=== PATIENT | female | born 1985 | race Caucasian/White ===

== ENCOUNTER 2018-04-15 08:54 | Outpatient (CLI) | payer BC | END 2018-04-15 08:55 | disposition home or self-care (01) | LOC: LAB 08:54 | PROVIDERS: ATTEND Obstetrics & Gynecology Reproductive Endocrinology | DX: Z32.00 Encounter for pregnancy test, result unknown (principal) | CPT/HCPCS: 36415; 84702; 84703 ==

== ENCOUNTER 2018-07-02 14:59 | Outpatient (CLI) | payer BC ==
--- NOTE | 2018-07-03 09:43 | Ultrasound Report ---
Procedure Date: 07/02/2018 Accession Number: [id number] / [id number] Procedure: US - OB Transvaginal CPT Code: FULL RESULT: EXAM: OB Transvaginal DATE: 07/02/2018 5:09 PM CLINICAL HISTORY: ENCNTR FOR SUPRVSN OF NORMAL FIRST , UNSP TECHNIQUE: Real-time scanning was performed with apprenticeship representative static images obtained. COMPARISON: None FINDINGS: The patient reports in vitro fertilization 05/28/2018. There are two live intrauterine gestations within apparently separate embryonic cavities. Gestation A demonstrates a crown-rump length of 7.3 mm for an estimated sonographic age of 6 weeks and 5 days with a heart rate of 144 bpm and a yolk sac diameter of 4.3 mm. There is no perigestational fluid collection. Gestation B demonstrates a crown-rump length of 5.2 mm for an estimated gestational age of 6 weeks and 3 days with a cardiac activity of 148 bpm. The yolk sac measures 4.7 mm. There is no perigestational fluid collection. Right ovary measures 2.7 x 1.7 x 2.2 cm and appears unremarkable. Left ovary measures 2.9 x 3.8 x 2.8 cm and appears unremarkable. Note is made of a small amount of free fluid in the pelvis. IMPRESSION: Twin live intrauterine gestations with sonographic ages of 6 weeks 5 days and 6 weeks 3 days respectively.
== END 2018-07-02 15:00 | disposition home or self-care (01) ==
LOC: DI 14:59
PROVIDERS: ATTEND Obstetrics & Gynecology Reproductive Endocrinology
DX: Z34.01 Encounter for supervision of normal first pregnancy, first trimester (principal); O30.001 Twin pregnancy, unspecified number of placenta and unspecified number of amniotic sacs, first trimester; Z3A.01 Less than 8 weeks gestation of pregnancy
CPT/HCPCS: 76817